=== PATIENT | male | born 1975 | race Caucasian/White ===

== ENCOUNTER 2017-10-03 12:51 | Observation (INO) ==
[2017-10-03 13:47] LABS: Basophils # 0.1 K/mcL (0.0-0.2); Eosinophils # 0.3 K/mcL (0.0-0.6); Eosinophils % 3.1 %; Hematocrit 47.1 % (37.5-50.1); Hemoglobin 15.7 g/dL (12.9-16.9); Immature Granulocytes % 0.4 % (0-4); Lymphocytes # 3.6 K/mcL (0.6-4.6); Lymphocytes % 33.1 %; Mean Corpuscular HGB Conc 33.3 g/dL (31.6-35.5); Mean Corpuscular Hemoglobin 28.4 pg (28.0-33.3); Mean Corpuscular Volume 85.2 fL (83.0-100.0); Mean Platelet Volume 11.7 fL (9.4-12.4); Monocytes # 0.9 K/mcL (0.0-1.3); Monocytes % 8.7 %; Neutrophils # 5.8 K/mcL (1.6-8.9); Platelet Count 267 K/mcL (140-400); Red Blood Count 5.53 M/mcL (4.19-5.50); Red Cell Distribution Width 13.2 % (11.5-14.5); Segmented Neutrophils % 53.7 %
[2017-10-03 13:58] LABS: Prothrombin Time 11.1 Seconds (9.4-12.1)
[2017-10-03 14:00] LABS: Activated Partial Thrombo Time 27.5 Seconds (26.0-36.0)
[2017-10-03 14:07] LABS: Alanine Aminotransferase 83 Units/L (7-52); Albumin 4.4 g/dL (3.5-5.7); Albumin/Globulin Ratio 1.1 (1.1-2.2); Alkaline Phosphatase 66 Units/L (34-104); Aspartate Amino Transferase 98 Units/L (13-39); BUN/Creatinine Ratio 15 (6-26); Bilirubin,Total 0.5 mg/dL (0.3-1.0); Blood Urea Nitrogen 47 mg/dL (6-20); Calcium 9.3 mg/dL (8.6-10.3); Carbon Dioxide 28 mEq/L (23-29); Chloride 93 mEq/L (98-107); Glucose 106 mg/dL (70-105); Osmolality,Calculated 287 (280-300); Sodium 132 mEq/L (136-145); Total Protein 8.4 g/dL (6.4-8.9); Troponin I < 0.03 ng/mL (< 0.04); eGFR For African Americans 26 (> 60); eGFR For Non-African Americans 21 (> 60)
[2017-10-03] MEDS ORDERED: 0.9 % Sodium Chloride 1,000 ML IVC ONE ×3 (14:29→16:29)
--- NOTE | 2017-10-03 14:42 | Emergency Department Note ---
Disposition Clinical Impression: Stroke, Rhabdomyolysis, Hypokalemia, Drug abuse, Acute kidney injury Disposition: Admitted As Inpatient Condition: Good Referrals: NONE,PCP [Non-Partnered Physician] - Forms: ED Satisfaction Letter General Adult HPI - General Chief complaint: ED Neuro Symptoms/Deficit Stated complaint: slurred speech,trouble walking/started Fri Time Seen by Provider: 10/03/17 13:30 Source: patient Limitations: no limitations Nursing Notes Reviewed: Yes Vital Signs Reviewed: Yes - History of Present Illness Pain Scale: 4 - Related Data Home Medications Medication Instructions Recorded Confirmed Buprenorphine HCl/Naloxone HCl 1.5 each SL QPM 07/04/17 10/03/17 [Suboxone 8 mg-2 mg Sl Film] Furosemide [Lasix] 20 - 40 mg PO DAILY 07/04/17 10/03/17 Omeprazole [PriLOSEC] 20 mg PO DAILY 07/04/17 10/03/17 Potassium Chloride [K-Tab ER] 10 meq PO DAILY 07/04/17 10/03/17 Quetiapine Fumarate [SEROquel] 100 mg PO HS 07/04/17 10/03/17 Valsartan/Hydrochlorothiazide 1 each PO DAILY 07/04/17 10/03/17 [Diovan Hct 320-25 mg Tablet] Allergies Allergy/AdvReac Type Severity Reaction Status Date / Time cephalexin [From Keflex] Allergy Rash Verified 10/03/17 14:42 Past Medical History - Past Medical History Medical history: Reports: CVA, hypertension, other Surgical history: Reports: appendectomy Psychiatric history: Reports: no psych history - Social History Smoking Status: Current every day smoker Smokeless Tobacco Status: No Alcohol use: Reports: none Drug use: Reports: methamphetamine, prescription drug abuse Physical Exam - General Limitations: no limitations General appearance: alert Course Vital Signs Temperature 97.5 F L 10/03/17 12:57 Pulse Rate 77 10/03/17 12:57 Respiratory Rate 20 10/03/17 12:57 Blood Pressure 105/72 10/03/17 12:57 O2 Sat by Pulse Oximetry 99 10/03/17 12:57 Temperature 97.5 F L 10/03/17 12:57 Pulse Rate 68 10/03/17 15:52 Respiratory Rate 18 10/03/17 15:52 Blood Pressure 107/62 10/03/17 15:52 O2 Sat by Pulse Oximetry 95 10/03/17 15:52 Oxygen Delivery Oxygen Delivery Room Air Medical Decision Making - MDM Narrative Medical decision making narrative: This documentation is done with the assistance of Dragon dictation. Despite efforts made to ensure accuracy, there may be inaccuracies in automation tester or spelling and typographical errors. I examined this patient and my medical decision-making was reviewed with the Resident Physician. I agree with the documented findings, disposition and treatment plan as described except to the extent set forth below. Patient seen and evaluated by Dr. Quiroz and myself, I agree with his evaluation management plan, supervised care the patient's stay. Patient presents today with weakness he said since Tuesday. He had a TIA versus CVA in July. Was transferred to [facility] where he signed out AGAINST MEDICAL ADVICE. And he started this on Tuesday. Asking Pancho come in sooner and he could not give me any answer for that. In his old notes; when he was seen previously, it looks like he had an NIH score of 1, today when we calculate his NIH score between 13 and 15. Nothing is acute today. Reviewing CT a stroke workup and told him we really want him to stay in the hospital for evaluation he is agreeing at this time. Chest X-Ray 10/03/17 13:03 IMPRESSION: No acute process. D/ / Ramon Kinney MD / Ramon Kinney MD Interpreting Provider: Ramon Kinney MD Head CT 10/03/17 13:37 IMPRESSION: No acute intracranial abnormality. D/ / 10/03/2017 14:00:33 Olvin Parry MD / tejinder Interpreting Provider: Olvin Parry MD 1438 hrs.: Patient's creatinine is elevated also. Were in agreement hospital [facility], CVA nonacute. He is in agreement with this plan. 1600 hrs.: Hospitals is dissected patient they ask since he is going to be a delay getting upstairs several going get the MRI and it was ordered. - Lab Data Result diagrams: 10/03/17 13:26 10/03/17 13:26 Lab Results 10/03/17 10/03/17 10/03/17 Range/Units 12:56 13:26 13:26 WBC 10.8 (4.3-11.1) K/mcL RBC 5.53 H (4.19-5.50) M/mcL Hgb 15.7 (12.9-16.9) g/dL Hct 47.1 (37.5-50.1) % MCV 85.2 (83.0-100.0) fL MCH 28.4 (28.0-33.3) pg MCHC 33.3 (31.6-35.5) g/dL RDW 13.2 (11.5-14.5) % Plt Count 267 (140-400) K/mcL MPV 11.7 (9.4-12.4) fL Immature Gran % 0.4 (0-4) % Seg Neutrophils % 53.7 % Lymphocytes % 33.1 % Monocytes % 8.7 % Eosinophils % 3.1 % Basophils % 1.0 % Neutrophils # 5.8 (1.6-8.9) K/mcL Lymphocytes # 3.6 (0.6-4.6) K/mcL Monocytes # 0.9 (0.0-1.3) K/mcL Eosinophils # 0.3 (0.0-0.6) K/mcL Basophils # 0.1 (0.0-0.2) K/mcL PT 11.1 (9.4-12.1) Seconds INR 1.0 APTT 27.5 (26.0-36.0) Seconds Sodium (136-145) mEq/L Potassium (3.5-5.1) mEq/L Chloride (98-107) mEq/L Carbon Dioxide (23-29) mEq/L BUN (6-20) mg/dL Creatinine (0.70-1.30) mg/dL Est GFR ( Amer) (> 60) Est GFR (Non-Af Amer) (> 60) BUN/Creatinine Ratio (6-26) Glucose (70-105) mg/dL POC Glucose 169 H (58-89) Calculated Osmolality (280-300) Calcium (8.6-10.3) mg/dL Total Bilirubin (0.3-1.0) mg/dL AST (13-39) Units/L ALT (7-52) Units/L Alkaline Phosphatase (34-104) Units/L Creatine Kinase (30-223) Units/L Troponin I (< 0.04) ng/mL Serum Total Protein (6.4-8.9) g/dL Albumin (3.5-5.7) g/dL Globulin (2.4-3.5) g/dL Albumin/Globulin Ratio (1.1-2.2) Urine Color (Yellow) Urine Clarity (Clear) Urine pH (5.0-8.0) pH Units Ur Specific [place] (1.010-1.025) Urine Protein (Neg-Trace) mg/dL Urine Glucose (UA) (Normal) mg/dL Urine Ketones (Negative) mg/dL Urine Blood (Negative) Urine Nitrite (Negative) Urine Bilirubin (Negative) Urine Urobilinogen (Normal) mg/dL Ur Leukocyte Esterase (Negative) Ur Culture Indicated? (NO) Urine Opiates Screen (Ckgnwj=106) ng/mL Ur Barbiturates Screen (Odzncx=999) ng/mL Ur Phencyclidine Scrn (Cutoff=25) ng/mL Ur Amphetamines Screen (Npaypc=2822) ng/mL U Benzodiazepines Scrn (Xwdkth=553) ng/mL Urine Cocaine Screen (Cutoff= 300) ng/mL U Marijuana (THC) Screen (Cutoff = 50) ng/mL 10/03/17 10/03/17 10/03/17 Range/Units 13:26 15:43 15:43 WBC (4.3-11.1) K/mcL RBC (4.19-5.50) M/mcL Hgb (12.9-16.9) g/dL Hct (37.5-50.1) % MCV (83.0-100.0) fL MCH (28.0-33.3) pg MCHC (31.6-35.5) g/dL RDW (11.5-14.5) % Plt Count (140-400) K/mcL MPV (9.4-12.4) fL Immature Gran % (0-4) % Seg Neutrophils % % Lymphocytes % % Monocytes % % Eosinophils % % Basophils % % Neutrophils # (1.6-8.9) K/mcL Lymphocytes # (0.6-4.6) K/mcL Monocytes # (0.0-1.3) K/mcL Eosinophils # (0.0-0.6) K/mcL Basophils # (0.0-0.2) K/mcL PT (9.4-12.1) Seconds INR APTT (26.0-36.0) Seconds Sodium 132 L (136-145) mEq/L Potassium 3.0 L (3.5-5.1) mEq/L Chloride 93 L (98-107) mEq/L Carbon Dioxide 28 (23-29) mEq/L BUN 47 H (6-20) mg/dL Creatinine 3.21 H (0.70-1.30) mg/dL Est GFR ( Amer) 26 L (> 60) Est GFR (Non-Af Amer) 21 L (> 60) BUN/Creatinine Ratio 15 (6-26) Glucose 106 H (70-105) mg/dL POC Glucose (58-89) Calculated Osmolality 287 (280-300) Calcium 9.3 (8.6-10.3) mg/dL Total Bilirubin 0.5 (0.3-1.0) mg/dL AST 98 H (13-39) Units/L ALT 83 H (7-52) Units/L Alkaline Phosphatase 66 (34-104) Units/L Creatine Kinase 1661 H (30-223) Units/L Troponin I < 0.03 (< 0.04) ng/mL Serum Total Protein 8.4 (6.4-8.9) g/dL Albumin 4.4 (3.5-5.7) g/dL Globulin 4.0 H (2.4-3.5) g/dL Albumin/Globulin Ratio 1.1 (1.1-2.2) Urine Color Yellow (Yellow) Urine Clarity Clear (Clear) Urine pH 6.0 (5.0-8.0) pH Units Ur Specific [place] 1.011 (1.010-1.025) Urine Protein Negative (Neg-Trace) mg/dL Urine Glucose (UA) Normal (Normal) mg/dL Urine Ketones Negative (Negative) mg/dL Urine Blood Negative (Negative) Urine Nitrite Negative (Negative) Urine Bilirubin Negative (Negative) Urine Urobilinogen Normal (Normal) mg/dL Ur Leukocyte Esterase Negative (Negative) Ur Culture Indicated? NO (NO) Urine Opiates Screen Negative (Khpahv=638) ng/mL Ur Barbiturates Screen Negative (Balgsi=036) ng/mL Ur Phencyclidine Scrn Negative (Cutoff=25) ng/mL Ur Amphetamines Screen Positive H (Lfyvew=2330) ng/mL U Benzodiazepines Scrn Positive H (Hmaxzt=829) ng/mL Urine Cocaine Screen Negative (Cutoff= 300) ng/mL U Marijuana (THC) Screen Negative (Cutoff = 50) ng/mL
--- NOTE | 2017-10-03 15:21 | Emergency Department Note ---
Disposition Clinical Impression: Hypokalemia, Drug abuse, Acute kidney injury Stroke Qualifiers: CVA mechanism: unspecified Qualified Code(s): I63.9 - Cerebral infarction, unspecified Rhabdomyolysis Qualifiers: Rhabdomyolysis type: non-traumatic Qualified Code(s): M62.82 - Rhabdomyolysis Disposition: Admitted As Inpatient Condition: Good Referrals: NONE,PCP [Non-Partnered Physician] - Forms: ED Satisfaction Letter Neuro HPI - General Chief Complaint: ED Neuro Symptoms/Deficit Stated Complaint: slurred speech,trouble walking/started Fri Time Seen by Provider: 10/03/17 13:30 Source: patient Limitations: no limitations Nursing Notes Reviewed: Yes Vital Signs Reviewed: Yes - History of Present Illness HPI Narrative: Patient presents to the emergency department for neurologic complaints and concern for stroke. The patient states that he had a stroke approximately 8 months ago and left [place] AGAINST MEDICAL ADVICE. Patient states that he did not follow up on any of the tests that they had ordered for him as an outpatient. The patient is a recovering drug user on Suboxone with last benzo use on Tuesday. He did do methamphetamines on Tuesday as well but states this was a one time thing and not used previously. The patient's symptoms started Tuesday evening. The patient had difficulty with speech as well as numbness in the left arm and leg with decreased ability to move the left leg. The patient thought his symptoms get better so he put off coming to the hospital. Upon evaluation the patient does have some confusion and looks to his mother to help him answer some questions. Concern for some mild aphasia. He has some mild slurred speech as well as left-sided facial droop. Decreased arm strength. Left leg weakness. Sensation deficits in the face arm and leg. - Related Data Home Medications: Home Medications Medication Instructions Recorded Confirmed Buprenorphine HCl/Naloxone HCl 1.5 each SL QPM 07/04/17 10/03/17 [Suboxone 8 mg-2 mg Sl Film] Furosemide [Lasix] 20 - 40 mg PO DAILY 07/04/17 10/03/17 Omeprazole [PriLOSEC] 20 mg PO DAILY 07/04/17 10/03/17 Potassium Chloride [K-Tab ER] 10 meq PO DAILY 07/04/17 10/03/17 Quetiapine Fumarate [SEROquel] 100 mg PO HS 07/04/17 10/03/17 Valsartan/Hydrochlorothiazide 1 each PO DAILY 07/04/17 10/03/17 [Diovan Hct 320-25 mg Tablet] Allergies/Adverse Reactions: Allergies Allergy/AdvReac Type Severity Reaction Status Date / Time cephalexin [From Keflex] Allergy Rash Verified 10/03/17 14:42 Review of Systems: CONSTITUTIONAL: No weight loss, fever, chills, weakness or fatigue. HEENT: Eyes: No visual changes. Ears, Nose, Throat: No hearing loss, difficulty talking or unable to swallow. SKIN: No rash or itching. CARDIOVASCULAR: No chest pain, chest pressure or chest discomfort. No palpitations or edema. RESPIRATORY: No shortness of breath, cough or sputum. GASTROINTESTINAL: No anorexia, nausea, vomiting or diarrhea. No abdominal pain or blood. GENITOURINARY: No burning on urination or hematuria. NEUROLOGICAL: Mild aphasia, dysarthria,, decreased sensation to the left face arm and leg as well as weakness to the left face arm and leg. MUSCULOSKELETAL: No muscle pain, back pain, joint pain or stiffness. Past Medical History - Past Medical History Medical history: Reports: CVA, hypertension, other Surgical history: Reports: appendectomy Psychiatric history: Reports: no psych history - Social History Smoking Status: Current every day smoker Smokeless Tobacco Status: No Alcohol use: Reports: none Drug use: Reports: methamphetamine, prescription drug abuse Physical Exam - General Limitations: no limitations General appearance: alert - Head Head exam: atraumatic, normocephalic - Eye Eye exam: Present: normal appearance, PERRL, EOMI - ENT ENT exam: normal exam, normal oropharynx - Neck Neck exam: Present: normal inspection, full ROM - Chest Chest inspection: Present: normal inspection, symmetric chest wall rise - Respiratory Respiratory exam: Present: normal lung sounds bilaterally. Absent: respiratory distress - Cardiovascular Cardiovascular exam: Present: regular rate, normal rhythm - Abdominal Exam Abdominal exam: Present: soft, Non-Tender - Extremities Exam Extremities exam: Present: normal inspection - Expanded Lower Extremity Exam Hip/Pelvis exam: Present: normal inspection - Back Exam Back exam: Present: normal inspection. Absent: CVA tenderness (R), CVA tenderness (L) - Expanded Neurological Exam Patient oriented to: Present: person, place. Absent: time Speech: Present: receptive aphasia Cranial nerves: facial sensation (V): Abnormal Left, facial palsy (VII): Abnormal Left, gag reflex (IX): Normal, spinal accessory function (XI): Normal, tongue deviation (XII): Normal Cerebellar function: finger to nose: Abnormal Left, heel to bright: Abnormal Left Motor strength - LUE: 4/5 Motor strength - RUE: 5/5 Motor strength - LLE: 4/5 Motor strength - RLE: 5/5 Sensory exam upper extremity: light touch: Abnormal Left, pin prick: Abnormal Left Sensory exam lower extremity: light touch: Abnormal Left, pin prick: Abnormal Left Coma Scale Eye Opening: Spontaneous Coma Scale Motor Response: Obeys Commands Coma Scale Verbal Response: Oriented Coma Scale Total: 15 - Psychiatric Psychiatric exam: Present: normal affect - Skin Skin exam: Present: warm, dry, intact Course - Consultations Consultation #1: Discussed with hospitalist. Patient accepted for admission. Stroke deficits in conjunction with electrolyte abnormalities and elevated creatinine. Elevated liver enzymes. Elevated CK. Patient has received fluids with in the emergency department. Urinalysis and urine tox are pending. Vital Signs Temperature 97.5 F L 10/03/17 12:57 Pulse Rate 77 10/03/17 12:57 Respiratory Rate 20 10/03/17 12:57 Blood Pressure 105/72 10/03/17 12:57 O2 Sat by Pulse Oximetry 99 10/03/17 12:57 Temperature 97.5 F L 10/03/17 12:57 Pulse Rate 68 10/03/17 15:52 Respiratory Rate 18 10/03/17 15:52 Blood Pressure 107/62 10/03/17 15:52 O2 Sat by Pulse Oximetry 95 10/03/17 15:52 Oxygen Delivery Oxygen Delivery Room Air Neuro Symptoms/Deficit - Medical Records Medical records reviewed: Yes I reviewed the patient's medical records. - Lab Data Lab results reviewed: Yes I reviewed the patient's lab results. Result diagrams: 10/03/17 13:26 10/03/17 13:26 Lab Results 10/03/17 10/03/17 10/03/17 Range/Units 12:56 13:26 13:26 WBC 10.8 (4.3-11.1) K/mcL RBC 5.53 H (4.19-5.50) M/mcL Hgb 15.7 (12.9-16.9) g/dL Hct 47.1 (37.5-50.1) % MCV 85.2 (83.0-100.0) fL MCH 28.4 (28.0-33.3) pg MCHC 33.3 (31.6-35.5) g/dL RDW 13.2 (11.5-14.5) % Plt Count 267 (140-400) K/mcL MPV 11.7 (9.4-12.4) fL Immature Gran % 0.4 (0-4) % Seg Neutrophils % 53.7 % Lymphocytes % 33.1 % Monocytes % 8.7 % Eosinophils % 3.1 % Basophils % 1.0 % Neutrophils # 5.8 (1.6-8.9) K/mcL Lymphocytes # 3.6 (0.6-4.6) K/mcL Monocytes # 0.9 (0.0-1.3) K/mcL Eosinophils # 0.3 (0.0-0.6) K/mcL Basophils # 0.1 (0.0-0.2) K/mcL PT 11.1 (9.4-12.1) Seconds INR 1.0 APTT 27.5 (26.0-36.0) Seconds Sodium (136-145) mEq/L Potassium (3.5-5.1) mEq/L Chloride (98-107) mEq/L Carbon Dioxide (23-29) mEq/L BUN (6-20) mg/dL Creatinine (0.70-1.30) mg/dL Est GFR ( Amer) (> 60) Est GFR (Non-Af Amer) (> 60) BUN/Creatinine Ratio (6-26) Glucose (70-105) mg/dL POC Glucose 169 H (58-89) Calculated Osmolality (280-300) Calcium (8.6-10.3) mg/dL Total Bilirubin (0.3-1.0) mg/dL AST (13-39) Units/L ALT (7-52) Units/L Alkaline Phosphatase (34-104) Units/L Creatine Kinase (30-223) Units/L Troponin I (< 0.04) ng/mL Serum Total Protein (6.4-8.9) g/dL Albumin (3.5-5.7) g/dL Globulin (2.4-3.5) g/dL Albumin/Globulin Ratio (1.1-2.2) Urine Color (Yellow) Urine Clarity (Clear) Urine pH (5.0-8.0) pH Units Ur Specific [place] (1.010-1.025) Urine Protein (Neg-Trace) mg/dL Urine Glucose (UA) (Normal) mg/dL Urine Ketones (Negative) mg/dL Urine Blood (Negative) Urine Nitrite (Negative) Urine Bilirubin (Negative) Urine Urobilinogen (Normal) mg/dL Ur Leukocyte Esterase (Negative) Ur Culture Indicated? (NO) Urine Opiates Screen (Uhozjh=312) ng/mL Ur Barbiturates Screen (Lyizxn=574) ng/mL Ur Phencyclidine Scrn (Cutoff=25) ng/mL Ur Amphetamines Screen (Qsqldz=1375) ng/mL U Benzodiazepines Scrn (Grmwoq=983) ng/mL Urine Cocaine Screen (Cutoff= 300) ng/mL U Marijuana (THC) Screen (Cutoff = 50) ng/mL 10/03/17 10/03/17 10/03/17 Range/Units 13:26 15:43 15:43 WBC (4.3-11.1) K/mcL RBC (4.19-5.50) M/mcL Hgb (12.9-16.9) g/dL Hct (37.5-50.1) % MCV (83.0-100.0) fL MCH (28.0-33.3) pg MCHC (31.6-35.5) g/dL RDW (11.5-14.5) % Plt Count (140-400) K/mcL MPV (9.4-12.4) fL Immature Gran % (0-4) % Seg Neutrophils % % Lymphocytes % % Monocytes % % Eosinophils % % Basophils % % Neutrophils # (1.6-8.9) K/mcL Lymphocytes # (0.6-4.6) K/mcL Monocytes # (0.0-1.3) K/mcL Eosinophils # (0.0-0.6) K/mcL Basophils # (0.0-0.2) K/mcL PT (9.4-12.1) Seconds INR APTT (26.0-36.0) Seconds Sodium 132 L (136-145) mEq/L Potassium 3.0 L (3.5-5.1) mEq/L Chloride 93 L (98-107) mEq/L Carbon Dioxide 28 (23-29) mEq/L BUN 47 H (6-20) mg/dL Creatinine 3.21 H (0.70-1.30) mg/dL Est GFR ( Amer) 26 L (> 60) Est GFR (Non-Af Amer) 21 L (> 60) BUN/Creatinine Ratio 15 (6-26) Glucose 106 H (70-105) mg/dL POC Glucose (58-89) Calculated Osmolality 287 (280-300) Calcium 9.3 (8.6-10.3) mg/dL Total Bilirubin 0.5 (0.3-1.0) mg/dL AST 98 H (13-39) Units/L ALT 83 H (7-52) Units/L Alkaline Phosphatase 66 (34-104) Units/L Creatine Kinase 1661 H (30-223) Units/L Troponin I < 0.03 (< 0.04) ng/mL Serum Total Protein 8.4 (6.4-8.9) g/dL Albumin 4.4 (3.5-5.7) g/dL Globulin 4.0 H (2.4-3.5) g/dL Albumin/Globulin Ratio 1.1 (1.1-2.2) Urine Color Yellow (Yellow) Urine Clarity Clear (Clear) Urine pH 6.0 (5.0-8.0) pH Units Ur Specific [place] 1.011 (1.010-1.025) Urine Protein Negative (Neg-Trace) mg/dL Urine Glucose (UA) Normal (Normal) mg/dL Urine Ketones Negative (Negative) mg/dL Urine Blood Negative (Negative) Urine Nitrite Negative (Negative) Urine Bilirubin Negative (Negative) Urine Urobilinogen Normal (Normal) mg/dL Ur Leukocyte Esterase Negative (Negative) Ur Culture Indicated? NO (NO) Urine Opiates Screen Negative (Qfuxya=897) ng/mL Ur Barbiturates Screen Negative (Zcevql=401) ng/mL Ur Phencyclidine Scrn Negative (Cutoff=25) ng/mL Ur Amphetamines Screen Positive H (Vehabt=0285) ng/mL U Benzodiazepines Scrn Positive H (Azkvur=918) ng/mL Urine Cocaine Screen Negative (Cutoff= 300) ng/mL U Marijuana (THC) Screen Negative (Cutoff = 50) ng/mL - Radiology Data Radiology results reviewed: Yes I reviewed the patient's radiology results. - EKG Data EKG attestation: Yes I reviewed and interpreted this EKG. EKG results narrative: EKG shows sinus rhythm with a ventricular rate of 78. VA 174. QRS 98. QTC 454. No significant ST elevations or depressions. NIH Stroke Scale - Level of Consciousness LOC: Alert - LOC Questions LOC Questions: Answers both incorrectly - LOC Commands LOC Commands: Performs both correctly - Best Gaze Best Gaze: Normal - Visual Visual: No visual loss - Facial Palsy Facial Palsy: Minor asymmetry on smiling, flattened nasolabial fold - Motor Arms Motor Arm-Left: Drift, does NOT hit bed Motor Arm-Right: No drift for 10 seconds - Motor Legs Motor Leg-Left: Some effort against gravity, limb drifts to bed Motor Leg-Right: No drift for 5 seconds - Limb Ataxia Limb Ataxia: Absent of affected limb too weak to perform exam - Sensory Sensory: Severe loss. Total sensory loss, pt unaware of being touched - Best Language Best Language: Mild to moderate aphasia. Examiner can identify picture from response - Dysarthria Dysarthria: Mild, slurs some words - Extinction and Inattention Extinction and Inattention: Normal - NIHSS Total Score NIHSS Total Score: 10 TPA Checklist - LKW: 3-4.5 hrs Add. Warnings/Precautions Patient/family understanding: The patient/family members have been counseled and understood the risk, benefit , and alternatives of treatment.
[2017-10-03 15:23] LABS: Creatine Kinase 1661 Units/L (30-223)
[2017-10-03 15:59] LABS: Amphetamine Screen,Urine Positive ng/mL (Cutoff=1000); Barbiturate Screen,Urine Negative ng/mL (Cutoff=200); Benzodiazepines Screen,Urine Positive ng/mL (Cutoff=200); Cannabinoid Screen,Urine Negative ng/mL (Cutoff = 50); Cocaine Screen,Urine Negative ng/mL (Cutoff= 300); Opiate Screen,Urine Negative ng/mL (Cutoff=300); Phencyclidine Screen,Urine Negative ng/mL (Cutoff=25)
[2017-10-03 16:00] LABS: Bilirubin,Urine Negative (Negative); Clarity,Urine Clear (Clear); Color,Urine Yellow (Yellow); Glucose,Urine (UA) Normal (Normal); Ketones,Urine Negative (Negative)
[2017-10-03 16:01] LABS: Blood,Urine Negative (Negative); Leukocyte Esterase,Urine Negative (Negative); Nitrite,Urine Negative (Negative); Protein,Urine Negative (Neg-Trace); Specific Gravity,Urine 1.011 (1.010-1.025); Urobilinogen,Urine Normal (Normal)
--- NOTE | 2017-10-03 16:08 | Internal Med History&Physical ---
<Brandyn Sinclair - Last Filed: 10/03/17 18:31> Date of Encounter: 10/03/17 Time of Encounter: 18:04 Assessment and Plan (1) Stroke Current visit: Yes Status: Acute Head CT performed in ED is negative CXR was negative EKG done in ED showed NSR Plan: - MRA and MRI of head ordered and negative - US doppler of carotids - TTE pending, EKG was normal in ED, continuous cardiac monitoring - Neurology consulted. Dr. Harman will see patient, recommends baby asa at this time. Most likely secondary to vasospasms related to drug abuse. - Speech consulted for swallow eval - NPO till then Qualifiers: CVA mechanism: unspecified Qualified Code(s): I63.9 - Cerebral infarction, unspecified (2) SKYLER (acute kidney injury) Current visit: Yes Status: Acute Most likely due to elevated CK secondary to rhabdo secondary to drug abuse Patient received 3 liters of normal saline in ED Plan: Retroperitoneal US ordered Maintenance fluids 125ml/kg Recheck BMP in morning Strict I/O's Spoke with Dr. Cuevas (nephrology) and he agrees to see the patient (3) Elevated creatine kinase Current visit: Yes Status: Acute Most likely due to rhabdomyolysis secondary to drug abuse Plan: - continue fluids, patient received 3L normal saline in ED - maintenance fluids - Otherwise, see plan above (4) Electrolyte abnormality Current visit: Yes Status: Acute Potassium was 3.0 Sodium of 132 Plan: - continue maintenance with normal saline - 40mEq potassium replaced in ED, will recheck this evening - Recheck labs in AM (5) Elevated LFTs Current visit: Yes Status: Acute Will continue to follow, no history of elevated LFT's or hepatitis on record AST 98, ALT 83 possibly related to hx of hepatitis C. (6) Drug abuse Current visit: Yes Status: Acute Patient admits to recent benzo and methamphetamine use as of 3 days ago Urine drug screen positive for benzos and methamphetamines Patient is suboxone user Plan: - Social work consult (7) Tobacco abuse Current visit: Yes Status: Acute Nicoderm patch 21mg TD daily (8) Hepatitis C, chronic Current visit: Yes Status: Acute Hx of hepatitis C Qualifiers: Qualified Code(s): B18.2 - Chronic viral hepatitis C (9) DVT prophylaxis Current visit: Yes Status: Acute Pneumatic compression Internal Medicine - H&P: HPI Chief complaint: stroke-like symptoms Admitted From: Emergency Dept Plans for Post Hospital Care: Home History of present illness: Mr. Browne is a 42 year old male with a PMHx of CVA, HTN, Hepatitis C, drug abuse, suboxone treatment, and appendectomy admitted to the hospital for slurred speech and difficulty ambulating. Symptoms began Tuesday evening, approximately 3 days ago. Patient states he had difficulty with speech as well as numbness in the left arm and leg with weakness in left leg. There was concern for mild aphasia given that the patient was having difficulty time answering questions for the ED attending. Evaluation by ED physician appreciated mild slurred speech, left-sided facial droop, decreased arm strength , left leg weakness, and sensation deficits in the face and arm. Patient has prior hx of CVA 8 months ago and was evaluated at [facility] in which he left AMA and completed no f/u appointments. Head CT performed in the ED showed no acute according to radiologist interpretation. CBC, coags, troponin, urine were normal. Patient has elevated creatinine, CK level, LFT's, and low sodium and potassium. Past Med Surg Social Fam HX - Past Medical History Medical history: CVA, hypertension, other Psychiatric history: no psych history - Past Surgical History Surgical History: appendectomy - Social History Smoking Status: Current every day smoker Smokeless Tobacco Status: No Alcohol use: none Drug use: methamphetamine, prescription drug abuse Internal Medicine - H&P: Meds Buprenorphine HCl/Naloxone HCl [Suboxone 8 mg-2 mg Sl Film] 1.5 each SL QPM 11/15 [History] Furosemide [Lasix] 20 - 40 mg PO DAILY 07/04/17 [History] Omeprazole [PriLOSEC] 20 mg PO DAILY 07/04/17 [History] Potassium Chloride [K-Tab ER] 10 meq PO DAILY 07/04/17 [History] Quetiapine Fumarate [SEROquel] 100 mg PO HS 07/04/17 [History] Valsartan/Hydrochlorothiazide [Diovan Hct 320-25 mg Tablet] 1 each PO DAILY 11/15 [History] 3 Allergy/AdvReac Type Severity Reaction Status Date / Time cephalexin [From Keflex] Allergy Rash Verified 10/03/17 14:42 All Systems PM: A 10-system review of systems was performed and is negative for pertinent findings except as documented above in the HPI. - Constitutional Constitutional: as per HPI - Constitutional Vitals: Temp Pulse Resp BP Pulse Ox 97.5 F L 68 18 107/62 95 10/03/17 12:57 10/03/17 15:52 10/03/17 15:52 10/03/17 15:52 10/03/17 15:52 General appearance: Present: A&O X 3, no acute distress, obese, answers questions appropriately Exam: Patient is sitting up in bed anxious. NIHSS is 12. According to nurse present patient appears to be improving. - Head Head exam: Present: atraumatic, normal inspection, normocephalic - Eye Eye exam: Present: normal appearance. Absent: conjunctival injection - Neck Neck exam general surgery: Present: normal inspection - Respiratory Respiratory exam: Present: CTAB. Absent: rales, rhonchi, wheezes - Cardiovascular Cardiovascular exam: Present: RRR, +S1, +S2 - GI/Abdominal GI/Abdominal exam: Present: normal bowel sounds, soft, no peritoneal signs. Absent: rebound, rigid, tenderness - Extremities Exam Extremities exam: Present: normal inspection, warm. Absent: pedal edema, tenderness - Back Exam Back exam: Present: normal inspection - Expanded Neurological Exam Neurological exam expanded: Present: protecting the airway Patient oriented to: Present: person, place, time Speech: Present: fluid speech Cranial Nerves: EOM's intact PM: Abnormal Left (no gaze past midline to the left ), gag reflex PM: Normal, nystagmus PM: Normal, tongue deviation PM: Normal Cerebellar function: finger to nose: Normal, heel to bright: Normal, Romberg: Normal Upper motor neuron: Babinski sign: Normal, Vladimir neglect: Normal, pronator drift : Abnormal Left Sensory exam: lower extremity light touch: Abnormal Left, upper extremity light touch: Abnormal Left Neuro motor strength exam: LUE: 4, RUE: 5, LLE: 3, RLE: 5 DTR: achilles tendon (L): 2+, achilles tendon (R): 2+, bicep (L): 2+, bicep (R) : 2+, patellar (L): 2+, patellar (R): 2+ Coma Scale Eye Opening: Spontaneous Coma Scale Motor Response: Obeys Commands Coma Scale Verbal Response: Oriented Coma Scale Total: 15 - Psychiatric Psychiatric exam: Present: anxious, normal affect - Skin Skin exam: Present: intact, warm Internal Med - H&P Results - Labs CBC & Chem 7: 10/03/17 13:26 10/03/17 13:26 Labs: Short CBC 10/03/17 Range/Units 13:26 WBC 10.8 (4.3-11.1) K/mcL Hgb 15.7 (12.9-16.9) g/dL Hct 47.1 (37.5-50.1) % Plt Count 267 (140-400) K/mcL Neutrophils # 5.8 (1.6-8.9) K/mcL BMP 10/03/17 13:26 Sodium 132 L Potassium 3.0 L Chloride 93 L Carbon Dioxide 28 BUN 47 H Creatinine 3.21 H Glucose 106 H Calcium 9.3 Cardiac Enzymes 10/03/17 Range/Units 13:26 Troponin I < 0.03 (< 0.04) ng/mL Liver Function 10/03/17 Range/Units 13:26 Total Bilirubin 0.5 (0.3-1.0) mg/dL AST 98 H (13-39) Units/L ALT 83 H (7-52) Units/L Alkaline Phosphatase 66 (34-104) Units/L Albumin 4.4 (3.5-5.7) g/dL Urine 10/03/17 Range/Units 15:43 Urine Color Yellow (Yellow) Urine Clarity Clear (Clear) Urine pH 6.0 (5.0-8.0) pH Units Ur Specific Brooker 1.011 (1.010-1.025) Urine Protein Negative (Neg-Trace) mg/dL Urine Glucose (UA) Normal (Normal) mg/dL - Impressions ITS Impressions Chest X-Ray 10/03/17 13:03 IMPRESSION: No acute process. D/ / Ramon Kinney MD / Ramon Kinney MD Interpreting Provider: Ramon Kinney MD Head CT 10/03/17 13:37 IMPRESSION: No acute intracranial abnormality. D/ / 10/03/2017 14:00:33 Olvin Parry MD / tejinder Interpreting Provider: Olvin Parry MD <De Russell - Last Filed: 10/03/17 19:18> Date of Encounter: 10/03/17 Internal Medicine - H&P: HPI History of present illness: Mr. Browne is a 42 year old male All Systems PM: A 10-system review of systems was performed and is negative for pertinent findings except as documented above in the HPI. - Constitutional Vitals: Temp Pulse Resp BP Pulse Ox 97.5 F L 71 18 118/55 99 10/03/17 12:57 10/03/17 17:35 10/03/17 17:35 10/03/17 17:35 10/03/17 17:35 Internal Med - H&P Results - Labs CBC & Chem 7: 10/03/17 13:26 10/03/17 13:26 Labs: Short CBC 10/03/17 Range/Units 13:26 WBC 10.8 (4.3-11.1) K/mcL Hgb 15.7 (12.9-16.9) g/dL Hct 47.1 (37.5-50.1) % Plt Count 267 (140-400) K/mcL Neutrophils # 5.8 (1.6-8.9) K/mcL BMP 10/03/17 13:26 Sodium 132 L Potassium 3.0 L Chloride 93 L Carbon Dioxide 28 BUN 47 H Creatinine 3.21 H Glucose 106 H Calcium 9.3 Cardiac Enzymes 10/03/17 Range/Units 13:26 Troponin I < 0.03 (< 0.04) ng/mL Liver Function 10/03/17 Range/Units 13:26 Total Bilirubin 0.5 (0.3-1.0) mg/dL AST 98 H (13-39) Units/L ALT 83 H (7-52) Units/L Alkaline Phosphatase 66 (34-104) Units/L Albumin 4.4 (3.5-5.7) g/dL Urine 10/03/17 Range/Units 15:43 Urine Color Yellow (Yellow) Urine Clarity Clear (Clear) Urine pH 6.0 (5.0-8.0) pH Units Ur Specific [place] 1.011 (1.010-1.025) Urine Protein Negative (Neg-Trace) mg/dL Urine Glucose (UA) Normal (Normal) mg/dL - Impressions ITS Impressions Chest X-Ray 10/03/17 13:03 IMPRESSION: No acute process. D/ / aRmon Kinney MD / Ramon Kinney MD Interpreting Provider: Ramon Kinney MD Head CT 10/03/17 13:37 IMPRESSION: No acute intracranial abnormality. D/ / 10/03/2017 14:00:33 Olvin Parry MD / tejinder Interpreting Provider: Olvin Parry MD Brain MRI 10/03/17 15:50 IMPRESSION: Normal MRI of the brain without contrast. D/ / Markel Ta / Markel Ta Interpreting Provider: Markel Ta Head MRA 10/03/17 15:50 IMPRESSION: Normal MRA of the head. D/ / Markel Ta / Markel Ta Interpreting Provider: Markel Ta - Attending Attestation I examined this patient and my medical decision-making was reviewed with the Resident Physician, Dr Sinclair. I agree with the documented findings, disposition and treatment plan as described except to the extent set forth below. Patient presented with left upper extremity weakness for 3 days. On exam he has decreased strength of the left outsole cutter machine. Cranial nerves: Speech fluent, no facial asymmetry, pupils equal round reactive to light, extraocular movements intact (with a caveat that when tracking my finger he reports not being able to cross the midline with his gaze to the left, however when I stand to his left side he is able to to look at me and cross the midline with his gaze ); tongue protrudes midline, soft palate raises symmetrically, symmetrical shoulder shrug. Reports diminished sensation over the left side of the face. The remainder of neurological exam was nonfocal. Plan: We will obtain MRI of the brain, MRA. Neuro consult. Echocardiogram. Neuro checks. Lipid panel. Carotid Dopplers. I advised cessation of all recreational drug use. I advised smoking cessation. We will provide nicotine replacement therapy.
[2017-10-03] MEDS ORDERED: Naloxone 0.4 MG/ML INJ IVP PRN (16:20)
[2017-10-03] MEDS: Nicotine 21 MG PATCH.TD24 TD SCH (17:34)
[2017-10-03 18:00] LABS: Magnesium 2.1 mg/dL (1.6-2.6)
[2017-10-03] MEDS ORDERED: *HR* LORazepam 2 MG/ML VIAL IVP ONE (18:27)
[2017-10-03] MEDS: *HR* Heparin 5,000 UNIT/ML VIAL SQ SCH (18:52)
[2017-10-03] MEDS ORDERED: *HR* Buprenorphine HCl 2 MG SUBLINGUAL TABLET SL SCH (19:30)
[2017-10-03 21:01] LABS: Albumin 3.5 g/dL (3.5-5.7); Albumin/Globulin Ratio 1.1 (1.1-2.2); Bilirubin,Total 0.4 mg/dL (0.3-1.0); Calcium 8.2 mg/dL (8.6-10.3); Globulin 3.2 g/dL (2.4-3.5); Total Protein 6.7 g/dL (6.4-8.9)
[2017-10-03] MEDS: Aspirin 81 MG TAB.CHEW PO SCH (22:55)
[2017-10-03] MEDS: 0.9 % Sodium Chloride 1,000 ML IVC SCH (22:55)
[2017-10-04] MEDS ORDERED: *HR* LORazepam 2 MG/ML VIAL IVP ONE (00:33)
--- NOTE | 2017-10-04 00:48 | Event Note ---
Date of Encounter: 10/04/17 Time of Encounter: 00:30 Called by floor nurse regarding patient and his suboxone. Pt. reported he had one dose of suboxone on his person for tomorrow morning dosing. Ordered suboxone cancelled and replaced as "patient's own". Pts. nurse instructed to take suboxone to Pharmacy per protocol. When medication received in Pharmacy, only one 8 mg pill remained in container. Pt. questioned regarding shortage and he stated that he had taken the 1/2 pill while in the ED this afternoon. Pt. is not forthcoming regarding the amount of suboxone he has actually taken today. I pulled the patient's OARRS report which showed a prescription written on for quantity of 15 pills for 10 days. Prescriber is Ivett Dye MD. Patient 's dosing was supposed to last through October 06, 2016. However, patient's dosing is short. I went over the pts. OARRS report with the pt. Patient became agitated and stated he was not sure why his dosing is short. He reports friends have been at their apartment and may have stolen some. Pt. also reports he was at a [employer] with friends on Tuesday where he drank 6+ beers, took an unknown amount of Xanax, and smoked meth. He states someone there may have taken his suboxone. Pt. stated earlier that he was going to leave AMA d/t not having his suboxone. I instructed the patient that leaving was against medical advice and reminded him that he was here d/t CVA sx and reduced function of his left UE and LE. Pt. states that he wants to leave at 10 a.m. today. Pt. reminded that this is his choice but leaving prior to being treated for his CVA sx is strictly against medical advice. Pts. one remaining 8 mg suboxone pill is currently locked in the Pharmacy per policy. 1 mg ativan IVP ONCE ordered for patient PRN tonight. Patient' suboxone prescriber should be made aware of the current quantity discrepancy. Patient states he will decide whether or not he is leaving in the morning.
[2017-10-04 04:40] LABS: Basophils # 0.1 K/mcL (0.0-0.2); Basophils % 1.3 %; Eosinophils # 0.2 K/mcL (0.0-0.6); Eosinophils % 3.6 %; Hematocrit 37.6 % (37.5-50.1); Immature Granulocytes % 0.2 % (0-4); Lymphocytes # 2.4 K/mcL (0.6-4.6); Lymphocytes % 43.9 %; Mean Corpuscular Hemoglobin 28.7 pg (28.0-33.3); Mean Corpuscular Volume 84.3 fL (83.0-100.0); Mean Platelet Volume 12.2 fL (9.4-12.4); Monocytes # 0.7 K/mcL (0.0-1.3); Monocytes % 11.9 %; Neutrophils # 2.2 K/mcL (1.6-8.9); Platelet Count 162 K/mcL (140-400); Red Blood Count 4.46 M/mcL (4.19-5.50); Red Cell Distribution Width 13.2 % (11.5-14.5); Segmented Neutrophils % 39.1 %
[2017-10-04 04:41] LABS: Albumin 3.3 g/dL (3.5-5.7); Albumin/Globulin Ratio 1.1 (1.1-2.2); Bilirubin,Total 0.4 mg/dL (0.3-1.0); Calcium 7.9 mg/dL (8.6-10.3); Globulin 2.9 g/dL (2.4-3.5); Potassium 3.3 mEq/L (3.5-5.1); Total Protein 6.2 g/dL (6.4-8.9)
[2017-10-04 04:52] LABS: Hemoglobin 12.8 g/dL (12.9-16.9)
[2017-10-04] MEDS: *HR* Heparin 5,000 UNIT/ML VIAL SQ SCH (06:56)
[2017-10-04 07:24] VITALS: BP 108/80
[2017-10-04] MEDS: 0.9 % Sodium Chloride 1,000 ML IVC SCH (07:45)
--- NOTE | 2017-10-04 07:54 | Nephrology Consult Note ---
Date of Encounter: 10/04/17 Time of Encounter: 07:52 Assessment and Plan (1) SKYLER (acute kidney injury) Current Visit: Yes Status: Acute The patient appears to have acute kidney injury. I do not think is related to rhabdomyolysis. Urine analysis is unremarkable as is his renal ultrasound. Exact etiology is unclear. He also appears to have a component of chronic kidney disease since his serum creatinine was elevated back in July 2017. No other serum creatinine levels are available (2) Chronic kidney disease, stage III (moderate) Current Visit: Yes Status: Acute (3) Drug abuse Current Visit: Yes Status: Acute History of Present Illness - History of Present Illness This is a 42-year-old male who presented to the emergency room yesterday with a 3 day history of neurologic symptoms consisting of slurred speech, left-sided weakness, and difficulty walking. MRI/MRA and CT scans are unremarkable. He was noted to have a creatinine of 2.57. Was placed on IV fluids today's creatinine is 1.94. Creatinine back in July was 1.54. Patient denies any previous knowledge of renal disease. Urinalysis is unremarkable. Patient denies any history of hematuria proteinuria renal stones recurrent urinary tract infections difficulty emptying his bladder family history of renal disease or frequent use of nonsteroidal anti-inflammatory agents. Renal ultrasound was unremarkable as well. Patient does have a history of hypertension as well as hepatitis C and drug abuse. Past Med Surg Social Fam HX - Past Medical History Medical history: CVA, hypertension, other Psychiatric history: anxiety - Past Surgical History Surgical History: appendectomy - Social History Smoking Status: Current every day smoker Packs per day: 2 Smokeless Tobacco Status: No Alcohol use: none Drug use: methamphetamine, prescription drug abuse Medications and Allergies Buprenorphine HCl/Naloxone HCl [Suboxone 8 mg-2 mg Sl Film] 1.5 each SL QPM 11/15 [History] Furosemide [Lasix] 20 - 40 mg PO DAILY 07/04/17 [History] Omeprazole [PriLOSEC] 20 mg PO DAILY 07/04/17 [History] Potassium Chloride [K-Tab ER] 10 meq PO DAILY 07/04/17 [History] Quetiapine Fumarate [SEROquel] 100 mg PO HS 07/04/17 [History] Valsartan/Hydrochlorothiazide [Diovan Hct 320-25 mg Tablet] 1 each PO DAILY 11/15 [History] 3 Allergy/AdvReac Type Severity Reaction Status Date / Time cephalexin [From Keflex] Allergy Rash Verified 10/03/17 14:42 Review of Systems Constitutional: as per HPI, weakness Eyes: bilateral: blurred vision (patient denies), diplopia (patient denies) Nose, mouth and throat: no dizziness, no headache(s) Cardiovascular: no chest pain, no palpitations Respiratory: no cough, no dyspnea Gastrointestinal: no abdominal pain, no change in bowel habits Musculoskeletal: abnormal gait, muscle weakness, no numbness Integumentary: no hirsutism, no striae Neurological: as per HPI, abnormal gait, abnormal speech, weakness Psychiatric: no depression, no difficulty concentrating Endocrine: as per HPI Hematologic/Lymphatic: no easy bruising, no lymphadenopathy Exam - Vital Signs Vital signs: Initial Vital Signs Temp Pulse Resp BP Pulse Ox 97.5 F L 77 20 105/72 99 10/03/17 12:57 10/03/17 12:57 10/03/17 12:57 10/03/17 12:57 10/03/17 12:57 Vital Signs - Last 8 Hours Temp Pulse Resp BP Pulse Ox 10/04/17 07:19 97.1 F L 67 16 108/80 94 10/04/17 04:32 97.5 F L 69 18 102/55 98 10/04/17 03:45 97.5 F L 69 18 102/55 Intake and Output 10/03/17 10/03/17 10/04/17 15:59 23:59 07:59 Intake Total 1000 / 1000 Output Total 0 / 0 Balance 1000 / 1000 Intake: IV Fluids 1000 / 1000 0.9 % Sodium Chloride 1,000 ML 1000 / 1000 @ 125 mls/hr IVC .Q8H [facility] Rx#: [id number] Output: Urine 0 / 0 Other: # Voids 2 Weight 105.7 kg 105.5 kg Patient Weight 10/04/17 23:59 Weight 105.5 kg - General Appearance Exam: Patient appears alert and oriented. He is in no acute distress. Blood pressure is 108/80. Lungs clear to auscultation. Heart regular rate and rhythm without any murmurs or S4 gallops clicks or rubs. Abdomen shows normal bowel sounds. No masses Delfin tenderness. Lower extremity show no peripheral edema. There are no abnormal skin rashes. Results - Lab Results 10/04/17 03:57 10/04/17 03:57 Most recent lab results Calcium 7.9 mg/dL (8.6-10.3) L 10/04/17 03:57 Magnesium 2.1 mg/dL (1.6-2.6) 10/03/17 13:26 Consult Discharge Plan - Plan Referrals: Ruddy Cespedes DO [Primary Care Provider] -
--- NOTE | 2017-10-04 08:14 | Neurology - Consult Note ---
<Aleksandar Mcnair - Last Filed: 10/04/17 11:27> Date of Encounter: 10/04/17 Time of Encounter: 08:11 Assessment and Plan (1) Weakness of left side of body Status: Acute Mr. browne 39 through old male presented with left-sided extremity weakness and left facial droop that started on Tuesday and he presented to the emergency department on Tuesday. Symptoms have completely resolved spontaneously without intervention since admission. MRI and CT of the brain are without acute findings. Mr. browne has refused carotid Doppler because he did not get his Suboxone at 9:00 AM sharp. - Neurologic examination does not demonstrate any weakness, patient has 5 out of 5 muscle strength bilaterally, no cerebellar ataxia, sensation intact, cranial nerves II through XII intact, deep tendon reflexes 2+ symmetric bilateral. -The patient did consume multiple different substances including methamphetamines, benzodiazepines, EtOH, Suboxone in one setting prior to the onset of the symptoms. There is a possibility that he had vasospasm and weakness symptoms which has since resolved. No findings on imaging or clinical examination. - Recommendation would be it once a day 81 mg aspirin and avoid illegal substances to prevent strokes in the future. History of Present Illness HPI: Mr. Browne is a 42 year old male with significant medical hx of multisubstance abuse on suboxone, Tobacco abuse, HLD, HTN, obesity and stated CVA last year evaluated at [facility] presents with left sided weakness of his left UE and LE associated with possible left facial droop. Mr. Browne states that his symptoms started on Tuesday but he did not present until Tuesday since they were not resolving on their own. He states that he developed left-sided weakness with difficulty standing or supporting his weight on the left side or mobility of his left upper extremity. He did not notice any difficulty with swallowing or speech or change in vision or headaches, chest pain, palpitations shortness of breath abdominal pain nausea vomiting diarrhea or constipation. He did not have any loss or change in sensation. He notices symptoms started after he was hanging out with some friends took Suboxone, Xanax, methamphetamines and alcohol. He does mention that he had a stroke 8 months ago for which he was flown from [facility] to [facility] for treatment and evaluation. He followed up with a primary care provider once after discharge. Upon evaluation today he says that his stroke is completely resolved he is fine and he is ready to go home. He is upset that his Suboxone was taken away from him and is unsure why there is no abnormal pill count. He follows commands appropriately and denies any numbness tingling weakness or other concerning symptoms. He mentions that both his maternal grandparents mainly grand fathers have had strokes around the age of 50 and denies any mother or father having stroke like symptoms. Past Med Surg Social Fam HX - Past Medical History Medical history: CVA, hypertension, other Psychiatric history: anxiety - Past Surgical History Surgical History: appendectomy - Social History Smoking Status: Current every day smoker Packs per day: 2 Smokeless Tobacco Status: No Alcohol use: none Drug use: methamphetamine, prescription drug abuse - Family History Grandfather Hx Family Neurologic Disorders: Yes (Stroke) Medications and Allergies Buprenorphine HCl/Naloxone HCl [Suboxone 8 mg-2 mg Sl Film] 1.5 each SL QPM 11/15 [History] Furosemide [Lasix] 20 - 40 mg PO DAILY 07/04/17 [History] Omeprazole [PriLOSEC] 20 mg PO DAILY 07/04/17 [History] Potassium Chloride [K-Tab ER] 10 meq PO DAILY 07/04/17 [History] Quetiapine Fumarate [SEROquel] 100 mg PO HS 07/04/17 [History] Valsartan/Hydrochlorothiazide [Diovan Hct 320-25 mg Tablet] 1 each PO DAILY 11/15 [History] 3 Allergy/AdvReac Type Severity Reaction Status Date / Time cephalexin [From Keflex] Allergy Rash Verified 10/03/17 14:42 All Systems: The remainder of the systems were reviewed and are negative - Constitutional Constitutional ROS IM: weakness, no excessive sweating, no fatigue, no fever(s) , no frequent falls, no headache(s) - Nose, Mouth, Throat Nose, mouth and throat: no abnormal hearing, no dizziness, no dysphagia, no sore throat, no vertigo - Cardiovascular Cardiovascular ROS IM: no irregular heart rhythm, no radiating pain, no rapid heart rate, no slow heart rate, no syncope - Respiratory Respiratory IM: no cough, no dyspnea - Gastrointestinal Gastrointestinal: no abdominal pain, no constipation, no diarrhea, no dyspepsia - Genitourinary Genitourinary ROS: no urinary frequency, no urinary incontinence - Musculoskeletal Musculoskeletal ROS IM: muscle weakness, no neck pain, no radiating pain into limb, no stiffness - Neurological Neurological ROS: weakness, no abnormal speech, no disequilibrium, no dizziness , no frequent falls, no loss of vision, no memory loss, no numbness Physical Examination - Vital Signs Vital Signs: Initial Vital Signs Temp Pulse Resp BP Pulse Ox 97.5 F L 77 20 105/72 99 10/03/17 12:57 10/03/17 12:57 10/03/17 12:57 10/03/17 12:57 10/03/17 12:57 - Constitutional General appearance: comfortable - Neurologic Sensorimotor examination: intact Motor examination - right side: 5/5: deltoids, biceps, triceps, wrist flexion, wrist extension, workers' compensation magistrate, hip flexors, tibialis Anterior, quadriceps, toe extension (EHL), plantarflexion Motor examination - left side: 5/5: deltoids, biceps, triceps, wrist flexion, wrist extension, hip flexors, workers' compensation magistrate, quadriceps, tibialis Anterior, toe extension (EHL), plantarflexion Detailed sensory examination: intact Reflex and gait examination: intact Reflexes: Biceps: 2+, Triceps: 2+, Brachioradialis: 2+, Patella: 2+, Achilles: 2 + Mental Status Examination: awake, alert, oriented to person, oriented to place, oriented to time, follows commands appropriately, answers questions appropriately, no agnosia, no aphasia, no aproxia, lucid Cranial nerve examination: PERRL, EOMI, visual mcadams intact, corneal reflexes brisk symmetrically, sensory to face intact, mastication intact, no facial asymmetry is present, no dysarthria, hearing is intact symmetrically, soft palate elevates bilaterally upon phonation, gag reflex intact, flexes SCM and trapezius muscles symmetrically with full power, tongue protrudes midline, no atrophy or facial fasiculations present Cerebellar examination: no dysmetria Results - Laboratory Findings CBC and BMP: 10/04/17 03:57 10/04/17 03:57 Abnormal lab findings: Abnormal lab results Hgb 12.8 g/dL (12.9-16.9) L D 10/04/17 03:57 Potassium 3.3 mEq/L (3.5-5.1) L 10/04/17 03:57 BUN 37 mg/dL (6-20) H 10/04/17 03:57 Creatinine 1.94 mg/dL (0.70-1.30) H 10/04/17 03:57 Est GFR ( Amer) 46 (> 60) L 10/04/17 03:57 Est GFR (Non-Af Amer) 38 (> 60) L 10/04/17 03:57 Glucose 124 mg/dL (70-105) H 10/04/17 03:57 POC Glucose 169 (58-89) H 10/03/17 12:56 Calcium 7.9 mg/dL (8.6-10.3) L 10/04/17 03:57 AST 58 Units/L (13-39) H 10/04/17 03:57 ALT 56 Units/L (7-52) H 10/04/17 03:57 Creatine Kinase 1661 Units/L (30-223) H 10/03/17 13:26 Serum Total Protein 6.2 g/dL (6.4-8.9) L 10/04/17 03:57 Albumin 3.3 g/dL (3.5-5.7) L 10/04/17 03:57 Ur Amphetamines Screen Positive ng/mL (Kqojxo=7609) H 10/03/17 15:43 U Benzodiazepines Scrn Positive ng/mL (Fpictm=375) H 10/03/17 15:43 Consult Discharge Plan - Plan Referrals: Ruddy Cespedes DO [Primary Care Provider] - <Montana Harman I - Last Filed: 10/04/17 15:50> Date of Encounter: 10/04/17 History of Present Illness HPI: Mr. Browne is a 42 year old male All Systems: The remainder of the systems were reviewed and are negative Physical Examination - Vital Signs Vital Signs: Initial Vital Signs Temp Pulse Resp BP Pulse Ox 97.5 F L 77 20 105/72 99 10/03/17 12:57 10/03/17 12:57 10/03/17 12:57 10/03/17 12:57 10/03/17 12:57 Results - Laboratory Findings CBC and BMP: 10/04/17 03:57 10/04/17 03:57 Abnormal lab findings: Abnormal lab results Hgb 12.8 g/dL (12.9-16.9) L D 10/04/17 03:57 Potassium 3.3 mEq/L (3.5-5.1) L 10/04/17 03:57 BUN 37 mg/dL (6-20) H 10/04/17 03:57 Creatinine 1.94 mg/dL (0.70-1.30) H 10/04/17 03:57 Est GFR ( Amer) 46 (> 60) L 10/04/17 03:57 Est GFR (Non-Af Amer) 38 (> 60) L 10/04/17 03:57 Glucose 124 mg/dL (70-105) H 10/04/17 03:57 POC Glucose 169 (58-89) H 10/03/17 12:56 Calcium 7.9 mg/dL (8.6-10.3) L 10/04/17 03:57 AST 58 Units/L (13-39) H 10/04/17 03:57 ALT 56 Units/L (7-52) H 10/04/17 03:57 Creatine Kinase 623 Units/L (30-223) H 10/04/17 08:14 Serum Total Protein 6.2 g/dL (6.4-8.9) L 10/04/17 03:57 Albumin 3.3 g/dL (3.5-5.7) L 10/04/17 03:57 PTH Intact 127.1 pg/ml (10.0-65.0) H 10/04/17 08:17 Ur Amphetamines Screen Positive ng/mL (Lfzccz=4774) H 10/03/17 15:43 U Benzodiazepines Scrn Positive ng/mL (Tbnzil=626) H 10/03/17 15:43 - Attending Attestation Pt was seen and examined, my medical decision was reviewed with the Resident Physician, I agree with the documented findings, disposition and treatment plas as described except to the extent set forth below Montana Harman MD
--- NOTE | 2017-10-04 08:52 | Internal Med Progress Note ---
Date of Encounter: 10/04/17 Time of Encounter: 08:50 - Time Spent With Patient 25 - 35 minutes - Subjective Interval history: Pt angry about Suboxone being held last evening and threatening AMA. He does not c/o WEINER,blurred vision, diplopia or any other neurological deficits. His renal function has improved. - Constitutional Vitals: Temp Pulse Resp BP Pulse Ox 97.1 F L 67 16 108/80 94 10/04/17 07:19 10/04/17 07:19 10/04/17 07:19 10/04/17 07:19 10/04/17 07:19 General appearance: Present: A&O X 3, no acute distress, obese, answers questions appropriately Internal Medicine: Result - Labs CBC & Chem 7: 10/04/17 03:57 10/04/17 03:57 Labs: Short CBC 10/04/17 Range/Units 03:57 WBC 5.6 (4.3-11.1) K/mcL Hgb 12.8 L D (12.9-16.9) g/dL Hct 37.6 (37.5-50.1) % Plt Count 162 (140-400) K/mcL Neutrophils # 2.2 (1.6-8.9) K/mcL BMP 10/03/17 10/04/17 20:27 03:57 Sodium 135 L 138 Potassium 3.0 L 3.3 L Chloride 102 105 Carbon Dioxide 28 26 BUN 42 H 37 H Creatinine 2.57 H 1.94 H Glucose 67 L 124 H Calcium 8.2 L 7.9 L Liver Function 10/03/17 10/04/17 Range/Units 20:27 03:57 Total Bilirubin 0.4 0.4 (0.3-1.0) mg/dL AST 68 H 58 H (13-39) Units/L ALT 62 H 56 H (7-52) Units/L Alkaline Phosphatase 54 51 (34-104) Units/L Albumin 3.5 3.3 L (3.5-5.7) g/dL - ABG Interpretation ABG results: PT/INR, D-dimer PT 11.1 Seconds (9.4-12.1) 10/03/17 13:26 Consult Discharge Plan - Plan Referrals: Ruddy Cespedes DO [Primary Care Provider] -
[2017-10-04] MEDS ORDERED: *HR* Buprenorphine HCl 8 MG TAB.SUBL SL SCH (09:00)
[2017-10-04] MEDS ORDERED: (Suboxone 8 Mg-2 Mg SL) SL SCH (09:00)
[2017-10-04] MEDS: Nicotine 21 MG PATCH.TD24 TD SCH (09:36)
[2017-10-04] MEDS: Aspirin 81 MG TAB.CHEW PO SCH (09:36)
--- NOTE | 2017-10-04 14:25 | Electrocardiograph Report ---
[facility] Test Date: 2017-10-03 Pat Name: Freddie Browne Department: 104 Room: 2NE33 Gender: M Production Support Consultant: : 1975 Requested By: Clement Rose Order Number: [id number] Reading MD: Arturo Ventura MD Measurements Intervals [place] Rate: 74 P: 25 MS: 178 QRS: 21 QRSD: 117 T: 36 QT: 422 QTc: 450 Interpretive Statements SINUS RHYTHM MODERATE INTRAVENTRICULAR CONDUCTION DELAY WARNING: DATA QUALITY MAY AFFECT INTERPRETATION Electronically Signed On 10-04-2017 14:23:22 EST by Arturo Ventura MD
--- NOTE | 2017-10-04 21:27 | Discharge Summary ---
Orders not resulted at time of discharge: Pending orders 10/04/17 07:57 Immunofixation,Urine ([facility]) Routine Urine Microalbumin Random [[facility]] Routine 10/04/17 08:17 Complement Component 3 Routine Complement Component 4 Routine Hepatitis Prof.(Routine A,B,C) Routine Immunoelectrophoresis Routine Date of Encounter: 10/04/17 Time of Encounter: 08:49 Hospital course: Mr. barajas is a 39 old man who presented with left-sided extremity weakness and left facial droop that started on Tuesday and he presented to the emergency department on Tuesday. His symptoms completely resolved spontaneously without intervention after admission. MRI and CT of the brain are without acute findings. Mr. barajas has refused carotid Doppler because he did not get his Suboxone at 9:00 AM sharp. His neurologic examination did not demonstrate any weakness. He had 5 out of 5 muscle strength bilaterally, no cerebellar ataxia, sensation intact, cranial nerves II through XII intact, deep tendon reflexes 2+ symmetric bilateral. -The patient did consume multiple different substances including methamphetamines, benzodiazepines, EtOH, Suboxone in one setting prior to the onset of the symptoms. It was thought possibly the patient developd vasospasm and weakness symptoms which has since resolved. No findings on imaging or clinical examination. 81 mg of aspirin daily was recommended and avoid illegal substances to prevent strokes in the future. He became angry about Suboxone being held last evening and left AMA before all f his exams were completed. . He does not c/o WEINER,blurred vision, diplopia or any other neurological deficits. His renal function had also improved. Discharge diagnosis: Left sided weakness- Not believed to be associated with stroke Polysubstance abuse Kyaw- resolving Workup incomplete Discharge discussed with: patient Time spent discussing smoking cessation with patient: more than 10 minutes - Time Spent with Patient Total time spent providing and/or coordinating discharge services: Greater than 30 minutes - Discharge Medications Home Medications: Buprenorphine HCl/Naloxone HCl [Suboxone 8 mg-2 mg Sl Film] 1.5 each SL QPM 11/15 [History] Furosemide [Lasix] 20 - 40 mg PO DAILY 07/04/17 [History] Omeprazole [PriLOSEC] 20 mg PO DAILY 07/04/17 [History] Potassium Chloride [K-Tab ER] 10 meq PO DAILY 07/04/17 [History] Quetiapine Fumarate [SEROquel] 100 mg PO HS 07/04/17 [History] Valsartan/Hydrochlorothiazide [Diovan Hct 320-25 mg Tablet] 1 each PO DAILY 11/15 [History] Allergies/Adverse Reactions: 3 Allergy/AdvReac Type Severity Reaction Status Date / Time cephalexin [From Keflex] Allergy Rash Verified 10/03/17 14:42 Date of admission: 10/03/17 20:19 Primary care physician: Ruddy Cespedes DO - Constitutional Vitals: Temp Pulse Resp BP Pulse Ox 97.1 F L 67 16 108/80 94 10/04/17 07:19 10/04/17 07:19 10/04/17 07:19 10/04/17 07:19 10/04/17 07:19 General appearance: Present: A&O X 3, no acute distress, answers questions appropriately - Head Head exam: Present: atraumatic, normocephalic - Eye Eye exam: Present: EOMI, PERRL, conjuntiva pink, sclera anicteric. Absent: conjunctival injection, nystagmus Pupils: Present: PERRL - Neck Neck exam general surgery: Present: supple, trachea midline. Absent: lymphadenopathy - Respiratory Respiratory exam: Present: CTAB. Absent: accessory muscle use, rales, rhonchi, wheezes - Cardiovascular Cardiovascular exam: Present: RRR, +S1, +S2. Absent: diastolic murmur, gallop, rubs, systolic murmur - GI/Abdominal GI/Abdominal exam: Present: normal bowel sounds, soft, no peritoneal signs. Absent: distended, tenderness - Extremities Exam Extremities exam: Present: warm, radial pulses palpable and symmetrical. Absent : calf tenderness, cyanotic, pedal edema - Neurological Exam Neurological exam: Present: CN II-XII intact, oriented X3, no focal deficits. Absent: motor sensory deficit, pronater drift, facial droop, speech deficit - Psychiatric Psychiatric exam: Present: agitated - Skin Skin exam: Present: dry, intact - Patient Status Disposition: Left Against Medical Advice Condition: Good - Discharge Instructions Follow Up With: Ruddy Cespedes DO [Primary Care Provider] -
[2017-10-05 02:47] LABS: Hepatitis A Antibody IgM Nonreactive (Nonreactive); Hepatitis B Core IgM Nonreactive (Nonreactive); Hepatitis B Surface Antigen Nonreactive (Nonreactive)
[2017-10-05 02:59] LABS: Hepatitis C Virus Antibody Reactive (Nonreactive)
[2017-10-06 09:25] LABS: Complement Component 3 108 mg/dL (88-201)
[2017-10-06 09:26] LABS: Complement Component 4 22 mg/dL (10-40)
[2017-10-06 21:29] LABS: Alpha 2 Globulin (PEP) 0.68 g/dL (0.48-1.05); Beta Globulin (PEP) 0.77 g/dL (0.48-1.10)
[2017-10-07 08:34] LABS: IFE Reflexed NOT DONE
== END 2017-10-04 11:25 | disposition left against medical advice (07) ==
LOC: EMEROO 12:51 → 2NENU 12:51
PROVIDERS: ADMIT Student in an Organized Health Care Education/Training Program; ATTEND Student in an Organized Health Care Education/Training Program